=== PATIENT | male | born 1965 ===

== ENCOUNTER 2025-03-07 07:00 | Day surgery (SDC) | payer OTHER ==
[~2025-03-07 07:00] MED LIST: COZAAR100 MG PO; TOPROL XL50 M1 PO
[2025-03-07] MEDS ORDERED: BUPIVACAINE HCL/MPF 0.5% 30ML VIAL ONE (07:19)
[2025-03-07] MEDS ORDERED: POVIDONE-IODINE 118 ML BOTT TOP ONE (07:19)
[2025-03-07] MEDS ORDERED: HEMOSTATIC MATRIX 1 KIT KIT TOP ONE (07:19)
[2025-03-07] MEDS ORDERED: LIDOCAINE HCL 1%/EPINEPHRINE 20ML VIAL IJ ONE (07:19)
[2025-03-07] MEDS ORDERED: DIBUCAINE 30 GM TUBE ONE (07:19)
[2025-03-07] MEDS ORDERED: METRONIDAZOLE/SODIUM CHLORIDE 500 MG/100 ML PIGGYBACK IV ONE (08:09)
[2025-03-07] MEDS ORDERED: CEFTRIAXONE SODIUM 2,000 MG VIAL ONE (08:09)
== END 2025-03-07 15:10 | disposition home or self-care (01) ==
LOC: CIR.AMB 07:00
PROVIDERS: ATTEND Colon & Rectal Surgery
DX: D12.8 Benign neoplasm of rectum (principal)